=== PATIENT | male | born 1975 | race Caucasian/White ===

== ENCOUNTER 2016-05-25 10:29 | Emergency (ER) | payer OTHER ==
[2016-05-25 10:43] VITALS: BP 137/97; PULSE 96; RESP 18; TEMP 98; O2SAT 97
--- NOTE | 2016-05-25 11:08 | UCPHY ---
H & P Time Seen by Provider: 05/25/16 10:45 Patient Type: Established HPI/ROS: CHIEF COMPLAINT: Sore throat, ear pain. HISTORY OF PRESENT ILLNESS: The patient is a 40-year-old male who presents with sore throat and ear pain for the past 5 days. On initial onset he had fever and chills which have subsided. He denies chest pain, shortness of breath , palpitations, vomiting, diarrhea, urinary complaints, headache, lightheadedness. He was treated for strep at the end of February and admits recent strep contact with family members. REVIEW OF SYSTEMS: Aside from elements discussed in the HPI, a comprehensive 10-point review of systems was reviewed and is negative. PAST MEDICAL HISTORY: Strep throat. SOCIAL HISTORY: . VITAL SIGNS: see nurse's notes. GENERAL: Well-developed, well-nourished, in no acute distress. HEENT: Atraumatic Eyes: PERRL, EOMI, no conjunctival injection. Ears: Right TM erythematous. Right external auditory canal erythematous. Left ear occluded by cerumen. Nose: No discharge. Mouth: moist mucous membranes. Pharynx: Vesicles on uvula. Bilateral enlarged tonsils, right worse than left. No abscess. Uvula is midline. NECK: Supple, no adenopathy, no meningismus, no tenderness. Negative Kernig's and Brudzinski's. LUNGS: Clear to auscultation bilaterally, no wheezes, rhonchi or rales. CARDIAC: Regular rate and rhythm, no rubs, murmurs or gallops. ABDOMEN: Soft, nontender, bowel sounds normal. BACK: No CVA tenderness. EXTREMITIES: Normal, no edema, FROM. NEURO: Alert and oriented, grossly nonfocal. SKIN: Warm and dry, no rash. PSYCHIATRIC: Normal mentation, no agitation. Portions of this note were transcribed by a medical billing associate. I, Dr Amanda Layton , personally performed a history, physical exam, medical decision making, and confirmed the accuracy of the information in the transcribed note. Smoking Status: Current every day smoker Constitutional: Initial Vital Signs Temperature (C) 36.6 C 05/25/16 10:40 Heart Rate 96 05/25/16 10:40 Respiratory Rate 18 05/25/16 10:40 Blood Pressure 137/97 H 05/25/16 10:40 O2 Sat (%) 97 05/25/16 10:40 O2 Delivery Mode Room Air Allergies/Adverse Reactions: No Known Allergies Allergy (Verified 04/13/16 17:33) Home Medications: Medication Instructions Recorded Amoxicillin 500 mg PO BID #20 capsule 05/25/16 Hydrocodone/APAP 5/325 [Bailey 1 tab PO Q6H PRN #10 tab 05/25/16 5/325 (RX)] Medical Decision Making ED Course/Re-evaluation: 40-year-old male with complaints of a sore throat and ear pain. On examination as erythematous posterior pharynx with vesicles and ulcerations on the uvula and soft palate. No discharge is noted. Patient strep screen is positive. I did ask the patient regarding any new sexual contacts. Patient will be treated for strep, but was advised that should his symptoms not resolve as expected or worsen despite the antibiotics, he should follow up with a primary care physician for consideration of additional causes of pharyngitis including gonococcal pharyngitis, viral pharyngitis, herpangina, herpes simplex. Differential Diagnosis: Differential diagnosis for the patient's sore throat was considered including but not limited to viral pharyngitis, bacterial pharyngitis, tonsillitis, tonsillar abscess, peritonsillar abscess, foreign body, epiglottitis, bacterial tracheitis. - Data Points Laboratory Results: 05/25/16 10:50 Group A Strep Screen POSITIVE H (NEGATIVE) Medications Given: Discontinued Medications Amoxicillin (Amoxicillin) 500 mg PO EDNOW ONE PRN Reason: Protocol Stop: 05/25/16 11:16 Last Admin: 05/25/16 11:26 Dose: 500 mg Ibuprofen (Motrin) 600 mg PO EDNOW ONE Stop: 05/25/16 11:16 Last Admin: 05/25/16 11:28 Dose: 600 mg Departure - Departure Disposition: Home, Routine, Self-Care Clinical Impression: Strep throat Condition: Good Instructions: Strep Throat (ED) Additional Instructions: Take Amoxicillin as prescribed. Use Hydrocodone at night for pain. Try saltwater gargles for the sore throat. I recommend Ibuprofen (Motrin,Advil) or Naproxen Sodium (Aleve) for pain and anti-inflammatory effects. You may take either one, but do not take both. Your dose is: Ibuprofen 600mg every 6-8 hours with food. OR Naproxen Sodium (Aleve) 220mg every 12 hours. Follow up with your primary care provider in the next 2-3 days if symptoms are not improving. If you need a primary care provider you have been given the telephone number of Dr. Scales, outpatient medicine. Return to Urgent Care or the emergency department if you experience serious worsening of condition or your symptoms are not improving. Referrals: Pierce Scales DO [Doctor of Osteopathy] - As per Instructions Prescriptions: Amoxicillin 500 mg PO BID #20 capsule Hydrocodone/APAP 5/325 [Bailey 5/325 (RX)] 1 tab PO Q6H PRN #10 tab PRN Reason: Pain - PQRS PQRS Measurement: Not applicable Report Scribed for: Amanda Layton Report Scribed by: Dennis Brooks Date of Report: 05/25/16 Time of Report: 11:08
[2016-05-25] MEDS ORDERED: IBUPROFEN 600 MG TAB PO ONE (11:15)
== END 2016-05-25 11:25 | disposition home or self-care (01) ==
LOC: CED 10:29
DX: J02.0 Streptococcal pharyngitis (principal)
CPT/HCPCS: 87880-PO; 99214-PO; G0463-PO